=== PATIENT | male | born 1985 ===

== ENCOUNTER 2016-04-11 05:56 | Inpatient (IN) | payer BC ==
--- NOTE | 2016-03-29 22:10 | HP ---
ADMISSION HISTORY AND PHYSICAL: DATE OF ADMISSION: 04/11/16 ATTENDING SURGEON: Dr. Indio Roman. CHIEF COMPLAINT: Morbid obesity. HISTORY OF PRESENT ILLNESS: This is a 30-year-old male who first presented to our office in September 2015 for bariatric surgical evaluation. He has completed his evaluation period including medically supervised weight loss visits, nutritional and psychological consults. His baseline lab work was notable for a low serum vitamin D level. He did complete 8 weeks of 50,000 units once weekly, but was not put on any supplement thereafter. I will check a repeat with his preadmission lab work. An ultrasound was done on 10/25/15 showing hepatomegaly and fatty liver changes. There was no evidence of gallstones. EGD was performed on 01/13/16 showing a mildly loose EG junction with mild esophagitis. CLOtest was negative. The patient also underwent sleep evaluation , which was positive for obstructive sleep apnea and for which, he is currently being treated with CPAP with good results. He was instructed to bring his CPAP unit with him. He has been seen by Dr. Roman on a number of occasions including again today to discuss the indications for surgery, the risks, benefits, and alternatives. The patient would like to proceed as scheduled with laparoscopic Yusuf-en-Y gastric bypass. PAST MEDICAL HISTORY: Morbid obesity, hypertension, obstructive sleep apnea. PREVIOUS SURGERIES: Inguinal herniorrhaphy as a child (the patient believes it was on the left side). CURRENT MEDICATIONS: Lisinopril 10 mg once daily. DRUG ALLERGIES: None known. FAMILY HISTORY: Positive for morbid obesity and hypertension and negative for anesthesia problems, bleeding, or clotting disorder. SOCIAL HISTORY: The patient lives alone. 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 He denies use of tobacco. He previously drank between 3 to 5 drinks per week, but in recent months, has tapered this down to nothing. He denies other drug use. REVIEW OF SYSTEMS: General: No recent constitutional symptoms or acute illnesses. Cardiovascular: History of hypertension. No chest pain, palpitations, or history of other cardiovascular disease. Respiratory: No history of asthma, chronic cough, shortness of breath. GI: No problems reported, specifically no GERD symptoms. No lower GI symptoms. : No problems reported. Endocrine: No diabetes or thyroid dysfunction. His TSH and serum cortisol were normal on initial workup. PHYSICAL EXAMINATION VITAL SIGNS: Height 72 inches, weight 444 pounds, BMI 60.2 (versus initial weight of 479 and BMI of 65), temperature 98.6, blood pressure 140/90, pulse 92 , respirations 18. GENERAL: Well-nourished, morbidly obese male, in no acute distress. SKIN: Warm and dry. No suspicious rashes or lesions. HEENT: Pupils equal and round, reactive. EOMs intact. No conjunctival pallor. Oropharynx, teeth in good repair. No intraoral lesions. NECK: No lymphadenopathy, thyromegaly, or masses. HEART: Regular rate and rhythm. No murmur noted. LUNGS: Clear to auscultation. No wheezes. ABDOMEN: Obese, soft, nontender to palpation. No palpable masses or organomegaly, though exam is limited by body habitus. GENITALIA AND RECTAL: Not done. BACK: No spinous process or CVA tenderness. EXTREMITIES: No edema. NEUROLOGICAL: Grossly intact. IMPRESSION: Morbid obesity. PLAN: Laparoscopic Yusuf-en-Y gastric bypass (the patient is not scheduled to be seen by the inspector handbag frames until 04/03/16, but was given a copy of the preoperative diet, which was reviewed with him today). TRUMAN GONZALEZ CC: Jonathan Calero MD * [id number]/[facility] #: [id number] MTDD
[2016-04-11] MEDS ORDERED: Famotidine IV* 10 MG/ML 2 ML (20 mg) IV ONE (06:00)
[2016-04-11] MEDS ORDERED: Buffered Lidocaine 1% SYR 3ML* 3 ML/SYR SYRINGE INTRADERM ONE (06:00)
[2016-04-11] MEDS ORDERED: Metoclopramide TAB* 10 MG PO ONE (06:00)
[2016-04-11] MEDS ORDERED: Famotidine IV* 10 MG/ML 2 ML (20 mg) ONE (06:19)
[2016-04-11] MEDS ORDERED: Heparin VIAL(*) 5000 UNITS/ML VIAL (FIVE THOUSAND) ONE (06:19)
[2016-04-11] MEDS ORDERED: ceFAZolin 1 GM in Dextrose (*) 1 GM/50 ML BAG IVPB ONE (06:19)
[2016-04-11] MEDS ORDERED: Metoclopramide TAB* 10 MG ONE (06:19)
[2016-04-11] MEDS ORDERED: ceFAZolin 2 GM PREMIX (*) 2 GM/50 ML BAG IVPB ONE (06:20)
[2016-04-11] MEDS ORDERED: Buffered Lidocaine 1% SYR 3ML* 3 ML/SYR SYRINGE ONE (06:20)
[2016-04-11] MEDS ORDERED: Methylene Blue 1%* 10 ML VIAL ONE (07:03)
[2016-04-11] MEDS ORDERED: Bupivacaine 0.5% W/EPI SDV* 30 ML VIAL ONE (07:03)
[2016-04-11] MEDS ORDERED: Bupivacaine 0.25% EPI 200,000* 30 ML SDV ONE ×2 (07:08→08:35)
[2016-04-11] MEDS ORDERED: fentaNYL* 50 MCG/ML 5 ML VIAL (250 MCG VIAL) ONE (07:30)
[2016-04-11] MEDS ORDERED: Propofol* 10 MG/ML 20 ML BTL IV PUSH ONE (07:30)
[2016-04-11] MEDS ORDERED: Lidocaine 2% MPF* 2 ML VIAL ONE (07:30)
[2016-04-11] MEDS ORDERED: Dexamethasone IV* 4 MG/ML 1 ML (4 MG) ONE (07:30)
[2016-04-11] MEDS ORDERED: Ketorolac INJ* 30 MG/ML 1 ML VIAL ONE (07:30)
[2016-04-11] MEDS ORDERED: Rocuronium* 10 MG/ML VIAL ONE ×2 (07:30→08:22)
[2016-04-11] MEDS ORDERED: Midazolam* 1 MG/ML 5 ML VIAL (5 MG) ONE (07:30)
[2016-04-11] MEDS ORDERED: Ondansetron INJ* 2 MG/ML VIAL ONE (07:30)
[2016-04-11] MEDS ORDERED: KETAMINE HCL* 50 MG/ML 10 ML VIAL ONE (07:30)
[2016-04-11] MEDS ORDERED: Clindamycin 900 MG IVPREMIX(* 900 MG/50 ML SDV IV ONE (08:00)
[2016-04-11] MEDS ORDERED: EPHEDrine (Pressors)* 50 MG/ML VIAL ONE (08:28)
[2016-04-11] MEDS ORDERED: DiMENhydriNATE IV* 50 MG/ML VIAL IV PUSH PRN (08:45)
[2016-04-11] MEDS ORDERED: Ondansetron INJ* 2 MG/ML VIAL IV PRN ×2 (08:45→10:26)
[2016-04-11] MEDS ORDERED: fentaNYL* 50 MCG/ML 2 ML VIAL (100 MCG VIAL) IV PRN (08:45)
[2016-04-11] MEDS ORDERED: fentaNYL* 50 MCG/ML 2 ML VIAL (100 MCG VIAL) ONE ×4 (09:16→10:39)
[2016-04-11] MEDS ORDERED: HYDROcodone/ACET. 7.5/325 LIQ* 15 ML UDC PO PRN (10:26)
[2016-04-11] MEDS ORDERED: diPHENhydraMINE IV* 50 MG/ML 1 ml VIAL (BENADRYL) SLOW PUSH PRN (10:26)
[2016-04-11] MEDS ORDERED: Acetaminophen ADULT LIQ* 650 MG/20.3 ML UDC PO PRN (10:26)
[2016-04-11] MEDS ORDERED: HYDROmorphone INJ* 1 MG/ML CARPUJECT SYRINGE IV PRN (10:26)
--- NOTE | 2016-04-11 10:31 | SURGPN ---
Brief Operative Note - Surgery Procedures: Pre-OP Diagnoses: Clinically severe obesity Post-op Diagnosis: same Procedure: Laparoscopic Yusuf an Y gastric bypass Surgeon: Abel Asst: Tristan Anethesia: GETA Toal EBL: minimal IVF: 2800cc LR Specimen: none Drains: #10 GREGG
[2016-04-11] MEDS ORDERED: HYDROmorphone INJ* 1 MG/ML CARPUJECT SYRINGE ONE (10:39)
[2016-04-11] MEDS: HYDROmorphone INJ* 1 MG/ML CARPUJECT SYRINGE IV PRN ×2 (10:49→11:18)
--- NOTE | 2016-04-11 12:24 | OP ---
DATE OF OPERATION: 04/11/16 - ROOM #351 DATE OF : 85 SURGEON: Indio Roman MD BUG TRIMMER: Deniz Hudson MD ANESTHESIOLOGIST: Vargas Madsen MD ANESTHESIA: General. PRE-OP DIAGNOSES: 1. Clinically severe obesity. 2. Hypertension. 3. Obstructive sleep apnea. POST-OP DIAGNOSES: 1. Clinically severe obesity. 2. Hypertension. 3. Obstructive sleep apnea. OPERATIVE PROCEDURE: Laparoscopic Yusuf-en-Y gastric bypass. ESTIMATED BLOOD LOSS: Minimal blood loss. FLUIDS: 2800 cc crystalloid fluid given. DRAINS: GREGG #10 epigastric jejunostomy. COUNTS: Lap pad count, instrument count correct at the end of the procedure. DESCRIPTION OF PROCEDURE: The patient was identified in the preoperative area, the case was discussed again and consent signed. I marked the patient, he was brought back to the operating room, and placed on the operating table in the supine position. Preoperative antibiotics were given. Sequential compression devices were placed on the bilateral lower extremities. General anesthesia was induced. The patient's abdomen was prepped and draped in the standard surgical fashion and a time-out was performed. Folds of the umbilicus were elevated anteriorly and a Veress needle was inserted into the abdominal cavity, which was then allowed to insufflate to a pressure of 15 mmHg. The patient tolerated the insufflation well. [place] between the xiphoid and the umbilicus just left of midline, a 12-mm trocar was inserted, laparoscope was inserted through this. There was no evidence of injury from the trocar incision or from Veress needle. Veress needle was then removed and additional trocars were then placed in the following position: A 12 mm and a 5 mm in the right upper quadrant, and a 12 mm and 5 mm in the left upper quadrant. Review of the abdomen showed a normal-appearing abdomen with no adhesions. Liver was of reasonable size. Next, the ligament of Treitz was identified. This was run approximately 40 cm proximally and the bowel was transected at this site. An enterotomy was made at the proximal portion of the section site. This would become the biliopancreatic limb. Next, 100 cm of small bowel was then counted off, enterotomy was made at this site too and a jejunojejunostomy was created with a 60-mm ny [place] stapling device and a common enterotomy was reapproximated with interrupted 2-0 silk sutures in a figure- of-8 fashion. The mesenteric defect was similarly closed with 2-0 silk sutures. Next, table was placed in a steep reverse Trendelenburg. The omentum which appeared enlarged was split of the middle to allow for the Yusuf limb to come to what would be the stomach pouch. Next, a Lucho retractor was inserted through a subxiphoid incision and liver was retracted anterior into the right. This exposed the gastroesophageal fat pad. A blunt dissection was utilized at this site to identify the left dominik. There appeared to be no hiatal hernia. Next, a retrogastric tunnel was made in the lesser curvature, approximately the third crossing vessel, and was completed with additional 60- and 45-mm ny [place] stapling devices. The pouch appeared small, and hemostasis was excellent. Next, a #36 M[place]gasque Abel tube was inserted into the stomach pouch and passed easily to its stapled end. Next, the Yusuf limb was identified, this was brought in apposition to the stomach pouch and sutured to the stapled edge of the stomach pouch with 2-0 silk sutures. Next, over the Abel tube, a gastrotomy was made with cautery and an enterotomy was similarly made. Next, a gastrojejunostomy was created with 30-mm ny [place] stapling device and placing this to approximately the 2-cm rishabh. This 2-cm staple line would become the gastrojejunostomy. The Abel tube fit easily into the stomach through this. Next, the common defect was reapproximated with running 3-0 Maxon sutures starting on either end and tying them in the middle. Next, the anastomosis was tested there by placing the Abel tube into the Yusuf limb and clamping it distal to this. We injected methylene blue. It dilated the Yusuf limb as well as the gastric pouch. Methylene dye was removed and no blue dye was appreciated throughout the staple line or the suture line, after placing a gauze over the site. Abel tube was then removed and we did place additional 2-0 silk sutures to the second layer of this gastrojejunostomy anastomosis. Next, a #10 GREGG drain was inserted into the abdomen and brought out through the left lateral most port site and sutured to the skin with 3-0 Surgipro sutures. It was placed under the liver extending towards the gastrojejunostomy anastomosis. Next, the abdomen was allowed to collapse, trocar was removed under direct vision, and all the other skin incisions were reapproximated with skin sadiq, followed by sterile dressing. The patient tolerated the procedure well, was woken up in the OR, and transferred to the PACU in stable condition. CC: Dr. Jonathan Calero* [id number]/[facility] #: [id number] ISA
[2016-04-11] MEDS: Famotidine IV * 20 MG in NS 0.9% 100 ML* 100 ML IVPB SCH ×2 (13:06→20:38)
[2016-04-11] MEDS: Ketorolac INJ* 30 MG/ML 1 ML VIAL IV PRN ×2 (13:12→20:37)
[2016-04-11] MEDS: Heparin VIAL(*) 5000 UNITS/ML VIAL (FIVE THOUSAND) SUBCUT SCH ×2 (14:21→21:57)
[2016-04-12] MEDS: Heparin VIAL(*) 5000 UNITS/ML VIAL (FIVE THOUSAND) SUBCUT SCH ×2 (05:33→14:07)
[2016-04-12 07:31] LABS: Hematocrit 40 % (42-52); Hemoglobin 13.5 g/dl (14.0-18.0); Mean Corpuscular HGB Conc 34 g/dl (31-36); Mean Corpuscular Hemoglobin 27 pg (27-31); Mean Corpuscular Volume 80 fL (80-94); Mean Platelet Volume 9 um3 (7.4-10.4); Red Blood Count 5.05 10^6/ul (4.0-5.4); Red Cell Distribution Width 14 % (10.5-15); White Blood Count 10.7 10^3/ul (3.5-10.8)
[2016-04-12] MEDS ORDERED: Famotidine IV* 10 MG/ML 2 ML (20 mg) ONE (09:03)
[2016-04-12] MEDS: Famotidine IV * 20 MG in NS 0.9% 100 ML* 100 ML IVPB SCH (09:06)
[2016-04-12] MEDS ORDERED: D5W 1/2 NS KCl 20 Meq 1000 ML* 1,000 ML IV SCH (10:28)
--- NOTE | 2016-04-12 10:35 | RAD ---
HISTORY: Status post gastric bypass COMPARISONS: None relevant TECHNIQUE: A single contrast fluoroscopic study was performed of the esophagus and upper GI tract. Water-soluble liquid contrast was administered under fluoroscopic observation. Multiple digital spot images were obtained Total fluoroscopy time is 0.6 minutes. FINDINGS: ESOPHAGUS: The esophagus is normal in contour, course, and caliber. There is no stricture or web. Contrast passes easily through the gastroesophageal junction into the stomach. There is normal esophageal motility. STOMACH: The patient is status post gastric bypass. A surgical drain is noted. There is no appreciable extravasation or obstruction. DUODENUM: The patient is status post gastric bypass SMALL BOWEL: The visualized proximal small bowel is unremarkable. IMPRESSION: STATUS POST GASTRIC BYPASS WITHOUT APPRECIABLE EXTRAVASATION OR OBSTRUCTION. CPT II Codes: 6045F
--- NOTE | 2016-04-12 10:54 | PN ---
Progress Note - Progress Note SOAP: Subjective: POD1 gasric bypass. Seen and examined. Feels well. Positive flatus. Some appetite. Upper abdo pain. Objective: af vss UO good lungs clear abdo: soft/ obese; tender at incisions. GREGG serosang no calf tenderness UGI: wnl CBC seen Assessment: POD1 gastric bypass, HD stable Plan: remove batista bariatric clears d/c planning [facility] to cover me until 04/16
[2016-04-12 16:35] VITALS: BP 136/81
--- NOTE | 2016-05-24 11:26 | DS ---
DISCHARGE SUMMARY: DATE OF ADMISSION: 04/11/16 DATE OF DISCHARGE: 04/12/16 HISTORY: Mr. Naylor is a 30-year-old gentleman with a diagnosis of severe morbid obesity who presented on same day of surgery on 04/11/16 and underwent laparoscopic Yusuf-en-Y gastric bypass. Please see operative report for details. In the postoperative period, he was transferred to the PACU and on to the short-stay unit. The following day he underwent an upper GI study, which was within normal limits and reviewed. He was started on a p.o. diet and discharged home later that day for a planned followup in the office the following week. [id number]/[facility] #: [id number] ISA
== END 2016-04-12 18:20 | disposition home or self-care (01) | DRG 403 ==
LOC: AA 05:56 → SSU 13:02
PROVIDERS: ADMIT Surgery; ATTEND Surgery
PROC: 0D164ZA Bypass Stomach to Jejunum, Percutaneous Endoscopic Approach (ICD-10-PCS; principal; 2016-04-11 07:45)
DX: E66.01 Morbid (severe) obesity due to excess calories (principal); I10 Essential (primary) hypertension; G47.33 Obstructive sleep apnea (adult) (pediatric); Z82.49 Family history of ischemic heart disease and other diseases of the circulatory system; Z68.44 Body mass index [BMI] 60.0-69.9, adult; K20.9 Esophagitis, unspecified
CPT/HCPCS: 36415; 74246; 85025; A9270-GY; C1776; J0690; J1100; J1170; J1644; J1885; J2250; J2405; J2704; J3010